=== PATIENT | female | born 1955 | race Caucasian/White ===

== ENCOUNTER 2017-03-09 09:43 | Inpatient (IN) ==
[2017-03-09] MEDS ORDERED: ASPIRIN PO STA (10:36)
[2017-03-09 10:52] LABS: MANUAL DIFF NEEDED? NO
[2017-03-09 10:52] LABS: ALLEN TEST YES; BE 4.9 mmoll (-3.0-3.0); BLOOD TYPE ARTERIAL; DRAW SITE R RADIAL; METHB 0.7 % (0.0-1.5); MODALITY CANNULA; O2(CT) 17.3 mL/dL (15.0-23.0); PCO2(98.6) 41 mmHg (35-45); PO2(98.6) 80 mmHg (60-100); SAMPLE BLOOD; SAO2 96.7 % (95.0-100.0); THB 12.9 g/dL (11.5-17.4); pH(98.6) 7.46 (7.35-7.45)
[2017-03-09 11:00] LABS: BASO% 0.2 % (0.0-0.8); EOS# 0.14 X1000 (0.0-0.7); EOS% 2.7 % (0.0-10.0); HEMATOCRIT 38.9 % (37.0-47.0); HEMOGLOBIN 12.9 g/dL (12.0-16.0); IMM GRAN# 0.02 X1000 (0.0-0.04); IMM GRAN% 0.4 % (0.0-0.5); LYMPH# 1.65 X1000 (1.2-3.4); LYMPH% 32.2 % (20.5-51.1); MCH 33.3 PG (27-31); MCHC 33.2 g/dL (33-37); MCV 100.5 FL (81-99); MONO# 0.65 X1000 (0.11-0.59); MONO% 12.7 % (1.7-9.3); MPV 12.3 FL (7.4-10.4); NEUT% 51.8 % (42.2-75.2); PLT 204 X1000 (130-400); RBC 3.87 XMIL (4.2-5.4)
[2017-03-09 11:13] LABS: INR 0.99; PROTIME 10.4 Seconds (9.2-11.7); PTT 24.5 Seconds (22.0-36.0)
[2017-03-09] MEDS ORDERED: MORPHINE IV ONE (11:19)
[2017-03-09] MEDS ORDERED: ZOFRAN IV ONE (11:20)
[2017-03-09 11:21] LABS: AGAP 13; ALBUMIN 4.2 g/dL (3.5-5.0); ALKALINE PHOSPHATASE 71 U/L (32-104); BUN 12 mg/dL (8-22); CALCIUM 9.6 mg/dL (8.8-10.2); CHLORIDE 101 mmol/L (98-107); CK PROFILE 77 U/L (24-173); COSMO 282; GOT 23 U/L (10-30); GPT 27 U/L (10-36); MAGNESIUM 1.9 mg/dL (1.5-2.7); POTASSIUM 3.8 mmol/L (3.5-5.1); SODIUM 142 mmol/L (136-145); TCO2 28 mmol/L (25-35); TOTAL BILIRUBIN 0.59 mg/dL (0.20-1.00); TOTAL PROTEIN 7.8 g/dL (6.3-8.3)
[2017-03-09] MEDS ORDERED: DUONEB (A & A) INH ONE (11:28)
--- NOTE | 2017-03-09 11:53 | PROVIDER DOCUMENTATION ---
HPI-Chest Pain - General Chief Complaint: Shortness of Breath Stated Complaint: LOW O2 SAT, 72 RA, 98 ON 3L Time Seen by Provider: 03/09/17 10:33 Source: patient Allergies/Adverse Reactions: Patient Allergies Allergy/AdvReac Type Severity Reaction Status Date / Time aspartame Allergy Intermediate SWELLING Verified 03/09/17 10:25 Home Medications: Home Medication List Medication Instructions Recorded Confirmed Last Taken Type Hydroxychloroquine [Plaquenil] 200 mg PO BID 03/22/12 03/09/17 03/09/17 05:00 History Albuterol Sulfate [Ventolin Hfa] 18 gm IH BID 11/17/16 03/09/17 10/25/16 History Azathioprine [Imuran] 2 tab PO BID 11/17/16 03/09/17 03/09/17 05:00 History Dicyclomine [Bentyl] 10 mg PO DIRECTED 11/17/16 03/09/17 03/09/17 05:00 History Losartan/Hydrochlorothiazide 1 each PO DAILY 11/17/16 03/09/17 03/09/17 05:00 History [Losartan-Hctz 50-12.5 mg Tab] Omeprazole 40 mg PO DAILY #30 capsule. 11/24/16 03/09/17 03/09/17 05:00 Rx - History of Present Illness-CP Nature of Presenting Problem: Pt is a 61 y/o F c chief complaint of R sided CP and SOB x 3 days. Pt states she was seen by her PCP, Dr. Almeida, today and had an out-pt chest x-ray in [place]. Her PCP had her transported to the ER via EMS and, per pt, told her she needs to be admitted for her shortness of breath. Pt has a long h/o fibrotic lung dz, CHF, morbid obesity. Pt states that for the past week it has been difficult to walk short distances without becoming severely short of breath. She also reports increased orthopnea. Additionally, pt has a long h/o back pain and states that it is worse today. On arrival, pt is anxious but is in minimal distress. Review of Systems - Adult - REVIEW OF SYSTEMS - ADULT Constitutional: reports: no symptoms reported. denies: chills, fatique Eyes: reports: no symptoms reported. denies: blurred vision, double vision Ears, Nose, Mouth & Throat: reports: no symptoms reported. denies: ear pain, nose pain, throat pain Cardiovascular: reports: see HPI, chest pain. denies: orthopnea Respiratory: reports: see HPI, cough, shortness of breath Gastrointestinal: reports: no symptoms reported. denies: abdominal pain, nausea Genitourinary: reports: no symptoms reported. denies: dysuria, hematuria Musculoskeletal: reports: no symptoms reported. denies: joint pain, joint swelling Integumentary: reports: no symptoms reported. denies: itching, rash Neurological: reports: no symptoms reported. denies: numbness, paresthesia Psychiatric: reports: no symptoms reported. denies: anxiety, emotional problems Endocrine: reports: no symptoms reported. denies: cold intolerance, heat intolerance Hematologic/Lymphatic: reports: no symptoms reported. denies: blood clots, low blood count Allergic/Immunologic: reports: no symptoms reported. denies: allergic reactions , food allergy All Other Systems: Reviewed and Negative Past History - Adult - PAST MEDICAL HISTORY-ADULT Review of Records: reports: Old Records Reviewed, Nursing Assessment Review, Medications Reviewed, Social history reviewed & non-contributory. Major Childhood Illnesses: reports: denies history Cardiovascular: reports: CHF, HTN, other (blocked artery) Respiratory: reports: COPD, other (fibrotic lung dz) Gastrointestinal: reports: denies history Obstetrical/Gynecological: reports: denies history Genitourinary: reports: denies history Musculoskeletal: reports: arthritis Neurological: reports: denies history Endocrine/Immune: reports: thyroid disorder Other Conditions: reports: denies history - PRIOR SURGERIES/PROCEDURES Surgical/Procedure History: reports: cholecystectomy, BTL - IMMUNIZATION STATUS Childhood Immunizations: See Nurse Assessment Flu Vaccine: See Nurse Assessment - FAMILY HISTORY Family History: reviewed, not pertinent Physical Exam-General - PHYSICAL EXAM-ADULT Initial Vital Signs Reviewed: Yes - CONSTITUTIONAL General Appearance: alert, mild distress, obese - EYES Eyes: PERRL/EOMI, pink conjunctivae - HEAD, EARS, NOSE, MOUTH & THROAT HENMT: normocephalic/atraumatic, moist mucous membranes, normal ENT inspection - NECK Neck: normal inspection - RESPIRATORY Respiratory: wheezing (wheezing throughout, decreased lung sounds in bases), increased rate, other (chest wall pain on palpation) - CARDIOVASCULAR Cardiovascular: normal peripheral pulses, regular rate, rhythm - GASTROINTESTINAL (ABDOMEN) Abdominal Exam: normal bowel sounds, non tender, soft - LYMPHATIC Lymphatic: no adenopathy - MUSCULOSKELETAL Back Exam: normal inspection, no CVA tenderness, no vertebral tenderness Extremity: normal range of motion, non-tender, normal inspection - SKIN Integumentary: normal color, normal turgor, warm/dry - NEUROLOGIC Neurologic: grossly normal, no motor/sensory deficits - PSYCHIATRIC Psych/Mental Status: anxious Progress - PLAN OF CARE/RESULTS Progress/Plan/Lab Results: Vital Signs - 8 hr 03/09/17 10:08 03/09/17 11:43 Temperature 98.2 F Pulse Rate 72 68 Respiratory Rate 24 16 Blood Pressure 167/84 O2 Sat by Pulse Oximetry 97 96 Laboratory Results - last 24 hr 03/09/17 03/09/17 03/09/17 10:00 10:15 10:15 WBC 5.13 RBC 3.87 L Hgb 12.9 Hct 38.9 MCV 100.5 H MCH 33.3 H MCHC 33.2 RDW Std Deviation 13.9 Plt Count 204 MPV 12.3 H Immature Gran % (Auto) 0.4 Neut % (Auto) 51.8 Lymph % (Auto) 32.2 [place] % (Auto) 12.7 H Eos % (Auto) 2.7 Baso % (Auto) 0.2 Immature Gran # (Auto) 0.02 Neut # (Auto) 2.66 Lymph # (Auto) 1.65 [place] # (Auto) 0.65 H Eos # (Auto) 0.14 Baso # (Auto) 0.01 PT INR PTT (Actin FS) D-Dimer 1.42 H Specimen Type Sample Site pH pCO2 pO2 HCO3 Base Excess Oxyhemoglobin ABG O2 Sat (Calculated) ABG O2 Saturation ABG Carboxyhemoglobin ABG Methemoglobin Leandro Test A-a O2 Difference Total Hemoglobin Lactate Liter Flow Blood Gas Modality FiO2 % Sodium 142 Potassium 3.8 Chloride 101 Carbon Dioxide 28 Anion Gap 13 BUN 12 Creatinine 0.7 Estimated GFR/1.73 m2 > 60 BUN/Creatinine Ratio 17 Glucose 81 Calculated Osmolality 282 Calcium 9.6 Magnesium 1.9 Total Bilirubin 0.59 AST 23 ALT 27 Alkaline Phosphatase 71 Creatine Kinase 77 Troponin T Rvg-R-Rqwrmdekiln Pept Total Protein 7.8 Albumin 4.2 Globulin 3.6 Albumin/Globulin Ratio 1.2 03/09/17 03/09/17 03/09/17 10:15 10:15 10:15 WBC RBC Hgb Hct MCV MCH MCHC RDW Std Deviation Plt Count MPV Immature Gran % (Auto) Neut % (Auto) Lymph % (Auto) [place] % (Auto) Eos % (Auto) Baso % (Auto) Immature Gran # (Auto) Neut # (Auto) Lymph # (Auto) [place] # (Auto) Eos # (Auto) Baso # (Auto) PT 10.4 INR 0.99 PTT (Actin FS) 24.5 D-Dimer Specimen Type Sample Site pH pCO2 pO2 HCO3 Base Excess Oxyhemoglobin ABG O2 Sat (Calculated) ABG O2 Saturation ABG Carboxyhemoglobin ABG Methemoglobin Leandro Test A-a O2 Difference Total Hemoglobin Lactate Liter Flow Blood Gas Modality FiO2 % Sodium Potassium Chloride Carbon Dioxide Anion Gap BUN Creatinine Estimated GFR/1.73 m2 BUN/Creatinine Ratio Glucose Calculated Osmolality Calcium Magnesium Total Bilirubin AST ALT Alkaline Phosphatase Creatine Kinase Troponin T < 0.010 Ecf-X-Jjlovjytzbk Pept 124 Total Protein Albumin Globulin Albumin/Globulin Ratio 03/09/17 10:42 WBC RBC Hgb Hct MCV MCH MCHC RDW Std Deviation Plt Count MPV Immature Gran % (Auto) Neut % (Auto) Lymph % (Auto) [place] % (Auto) Eos % (Auto) Baso % (Auto) Immature Gran # (Auto) Neut # (Auto) Lymph # (Auto) [place] # (Auto) Eos # (Auto) Baso # (Auto) PT INR PTT (Actin FS) D-Dimer Specimen Type ARTERIAL Sample Site R RADIAL pH 7.46 H pCO2 41 pO2 80 HCO3 28.7 H Base Excess 4.9 H Oxyhemoglobin 95.0 ABG O2 Sat (Calculated) 17.3 ABG O2 Saturation 96.7 ABG Carboxyhemoglobin 1.20 ABG Methemoglobin 0.7 Leandro Test YES A-a O2 Difference 97.0 Total Hemoglobin 12.9 Lactate 1.20 Liter Flow 3.0 Blood Gas Modality CANNULA FiO2 % 32.0 Sodium Potassium Chloride Carbon Dioxide Anion Gap BUN Creatinine Estimated GFR/1.73 m2 BUN/Creatinine Ratio Glucose Calculated Osmolality Calcium Magnesium Total Bilirubin AST ALT Alkaline Phosphatase Creatine Kinase Troponin T Wpr-H-Evppkyljxzy Pept Total Protein Albumin Globulin Albumin/Globulin Ratio Orders Category Date Time Status Cardiac Monitoring DIRECTED Care 03/09/17 10:36 Active Oxygen Therapy- ED Nursing DIRECTED Care 03/09/17 10:36 Active Saline Loc NOW Care 03/09/17 10:[address] ANGIOGRM/PULMONARY ARTERIES [CT] Stat Exams 03/09/17 11:43 Completed ABG [RESP] Routine Lab 03/09/17 10:42 Completed CBC WITH ELECTRONIC DIFF [HEME] Stat Lab 03/09/17 10:00 Completed CK PROFILE [SP CHEM] Stat Lab 03/09/17 10:15 Completed COMPREHENSIVE METABOLIC PANEL [CHEM] Stat Lab 03/09/17 10:15 Completed D-DIMER [CHEM] Stat Lab 03/09/17 10:15 Completed MAGNESIUM [CHEM] Stat Lab 03/09/17 10:15 Completed PRO B-NATRIURETIC PEPTIDE Stat Lab 03/09/17 10:15 Completed PROTIME WITH INR [COAG] Stat Lab 03/09/17 10:15 Completed PTT [COAG] Stat Lab 03/09/17 10:15 Completed TROPONIN T Stat Lab 03/09/17 10:15 Completed Albuterol 2.5MG/Ipratrop 0.5MG [Duoneb (A & A)] Med 03/09/17 11:28 Discontinued 6 ml INH NOW ONE Aspirin Med 03/09/17 10:36 Discontinued 325 mg PO STAT STA Dexamethasone [Decadron] Med 03/09/17 14:16 Discontinued 10 mg IV NOW ONE Morphine Med 03/09/17 11:19 Discontinued 4 mg IV NOW ONE Ondansetron [Zofran] Med 03/09/17 11:20 Discontinued 4 mg IV NOW ONE Aerosol Treatments Routine Oth 03/09/17 11:28 Completed Aerosol Treatments Stat Oth 03/09/17 11:28 Completed EKG [EKG] Routine Ther 03/09/17 12:00 Draft EKG [EKG] Stat Ther 03/09/17 10:36 Draft Result Diagrams: 03/09/17 10:00 03/09/17 10:15 - REASSESSMENT Reassessment #1 Time Reassessed: 14:24 (Pt states she feels improved but is still having tightness in her chest with respirations. I have ordered a repeat set of cardiac enzymes. Dr. Jaffe agrees c admission to hospital for COPD exacerbation. ) - CT/MRI 1 CT Study: Angiogram Impression: Normal (COMMENT: The study is suboptimal due to beam hardening artifact and motion. There are no definite filling defects in the pulmonary arteries. The aorta is not distended and there is no evidence of dissection. No abnormal fluid collections are present. There is no evidence of acute pulmonary parenchymal disease. There is no evidence of significant adenopathy. The regional skeleton is stable in appearance. IMPRESSION: No evidence of pulmonary emboli.) - CONSULTS/PCP/HOSPITALIST Notification #1 *Consult/PCP/Hospitalist*: Jailyn IBRAHIM / Dr. Santiago (Hospitalist) Time Discussed: 14:36 Reason/Comments: Will see pt in the ER and admit. Departure - Departure Date of Disposition Decision: 03/09/17 Time of Disposition Decision: 14:20 DIAGNOSIS: COPD exacerbation Disposition: ADMITTED INPATIENT 09 Certified Medical Emergency: Emergent Condition: Stable Referrals and Follow-Ups: Esteban Almeida [Primary Care Provider] - - Critical Care Note This patient required my direct & personal management of CC.: No Attestation - Physician/ MIKE Attestation Patient care was provided by Advanced Practice Provider:: Yes Advanced Practice Provider:: Otoniel Uriostegui Advanced Practice Provider documentation review:: The Mid-level provider documentation, treatment plan and medical decision making was reviewed by the physician who agrees with all treatment and medical decision making by the MLP. The physician spent face to face time with patient:: No Advanced Practice Provider documentation review:: Supervising physician onsite and consulted in the evaluation and care of this patient. The physician did not have a face to face encounter with the patient.
--- NOTE | 2017-03-09 12:04 | ED EKG INTERP ---
This chart was entered by Sabra Hill Scribe, acting as scribe for Jessica Jaffe MD. EKG Interpretation - EKG Time of EKG reading by physician:: 10:03 EKG Read and Signed by:: Jessica Jaffe EKG Interpretation (*Must complete 3 of following elements*): Abnormal ( BORDERLINE EKG) Rate: 76 Rhythm: NSR Comments: Low voltage QRS Attestation - Physician/ MIKE Attestation Patient care was provided by Advanced Practice Provider:: No The physician spent face to face time with patient:: Yes Advanced Practice Provider documentation review:: Supervising physician onsite and consulted in the evaluation and care of this patient. The physician did have a face to face encounter with the patient. This chart was documented by the indicated scribe, (Sabra Hill Scribe) and accurately reflects the services I performed and decisions made by me, Jessica Jaffe MD, as attested by the provider's signature.
--- NOTE | 2017-03-09 12:50 | EKG Report ---
Test Performed on : 03/09/2017 10:03:28 AM Test Reason : Chest Pain Blood Pressure : / mmHG Vent. Rate : 076 BPM Atrial Rate : 076 BPM P-R Int : 178 ms QRS Dur : 088 ms QT Int : 400 ms P-R-T Axes : 057 -06 039 degrees QTc Int : 450 ms Normal sinus rhythm. Low voltage QRS Borderline ECG When compared with ECG of 23-MAR-2012 05:49, No significant change was found Unconfirmed Result
--- NOTE | 2017-03-09 12:50 | EKG Report ---
Test Performed on : 03/09/2017 12:12:04 PM Test Reason : Chest Pain Blood Pressure : / mmHG Vent. Rate : 079 BPM Atrial Rate : 079 BPM P-R Int : 160 ms QRS Dur : 094 ms QT Int : 400 ms P-R-T Axes : 012 -07 034 degrees QTc Int : 458 ms Normal sinus rhythm. Low voltage QRS Borderline ECG When compared with ECG of 09-MAR-2017 10:03, (Unconfirmed) No significant change was found Unconfirmed Result
--- NOTE | 2017-03-09 13:53 | ED EKG INTERP ---
This chart was entered by Sabar Hill Scribe, acting as scribe for Jessica Jaffe MD. EKG Interpretation - EKG Time of EKG reading by physician:: 12:12 EKG Read and Signed by:: Jessica Jaffe EKG Interpretation (*Must complete 3 of following elements*): Abnormal ( BORDERLINE EKG) Rate: 79 Rhythm: NSR [place]: normal QRS: other (low voltage QRS) Attestation - Physician/ MIKE Attestation Patient care was provided by Advanced Practice Provider:: No The physician spent face to face time with patient:: Yes Advanced Practice Provider documentation review:: Supervising physician onsite and consulted in the evaluation and care of this patient. The physician did have a face to face encounter with the patient. This chart was documented by the indicated scribe, (Sabra Hill Scribe) and accurately reflects the services I performed and decisions made by me, Jessica Jaffe MD, as attested by the provider's signature.
--- NOTE | 2017-03-09 13:55 | Diag Imaging Result Doc PS360 ---
EXAM: CT ANGIOGRM/PULMONARY ARTERIES HISTORY: R SIDED CP, FIBROTIC LUNG DZ, ELEV DDIMER TECHNIQUE: CT pulmonary angiogram with 3-D MIPS and reduced dose (clarity.) COMMENT: The study is suboptimal due to beam hardening artifact and motion. There are no definite filling defects in the pulmonary arteries. The aorta is not distended and there is no evidence of dissection. No abnormal fluid collections are present. There is no evidence of acute pulmonary parenchymal disease. There is no evidence of significant adenopathy. The regional skeleton is stable in appearance. IMPRESSION: No evidence of pulmonary emboli. Electronically signed by Giuseppe Sanchez 03/09/2017 1:53 PM
[2017-03-09] MEDS ORDERED: DECADRON IV ONE (14:16)
[2017-03-09 15:29] LABS: URINE CULTURE NEEDED? NO; URINE MICRO REVIEW NEEDED? NO; URINE SOURCE CLEAN CATCH
[2017-03-09 15:39] LABS: BILIRUBIN URINE NEGATIVE (NEGATIVE); BLOOD URINE NEGATIVE (NEGATIVE); COLOR YELLOW; GLUCOSE URINE NEGATIVE (NEGATIVE); LEUKOCYTES URINE NEGATIVE (NEGATIVE); NITRITE URINE NEGATIVE (NEGATIVE); PH URINE 5.5; PROTEIN URINE NEGATIVE (NEGATIVE); SP GRAVITY URINE 1.008; TURBIDITY URINE CLEAR (CLEAR); UROBILINOGEN URINE NORMAL (NORMAL)
[2017-03-09 15:41] LABS: UR EPITHELIAL CELLS <10 /HPF (<10); URINE BACTERIA NEGATIVE /HPF; URINE RBC <10 /HPF (<10); URINE WBC <10 /HPF (<10)
[2017-03-09] MEDS: SOLU-MEDROL IV SCH (18:06)
[2017-03-09] MEDS: ROCEPHIN 1 GM in NS 50 ML IV SCH (18:08)
[2017-03-09] MEDS ORDERED: ZOFRAN IV PRN (18:22)
[2017-03-09] MEDS ORDERED: NITROGLYCERIN SL PRN (18:22)
--- NOTE | 2017-03-09 19:23 | HISTORY AND PHYSICAL ---
PRIMARY CARE PROVIDER: Esteban Almeida MD. WORKERS COMPENSATION CLAIMS ANALYST: Rashid Cruz MD, who she saw 3 weeks ago. CHIEF COMPLAINT: Chest pain and shortness of breath. HISTORY OF PRESENT ILLNESS: Ms. Es Velásquez is a 61-year-old, , morbidly obese female, with a medical history of COPD, hypertension, dyslipidemia, who apparently for the last 5 days has been feeling unwell, since Sunday. But for the last 3 days, she started developing shortness of breath with chest pain that would radiate to the right shoulder that had associated nausea and dizziness. Denied any diaphoresis, but she just felt like her chest was so tight it was hard to breathe. She has had other symptoms such as chills and diarrhea, increasing lower extremity edema. She went to go see Dr. Almeida today, who sent her here to work her up for COPD and chest pain. Upon evaluation, her white count was normal at 5. Her ABGs are also somewhat normal 7.46, pCO2 of 41, pO2 of 80 and this is on 3 L nasal cannula. She normally wears 2 L at home. She states that she feels like this is not from her COPD and is concerned about her heart. She did have an elevated D-dimer at 1.42, which was negative CTA for negative PE. Cardiac enzymes x1 set is negative. EKG is negative. So we will go ahead and work up for COPD exacerbation and chest pain, rule out. She could benefit likely for an outpatient stress test. According to her, she has been getting a workup through Dr. Dias for gastric sleeve, but her cardiac workup has not been completed. She states that her last stress test was several years ago. She does have a family history of cardiac disease, primarily in her brothers and her father through ages 40-60. She has been a smoker for 40 years although she quit 1-1/2 years ago. She is morbidly obese and she has high cholesterol. PAST MEDICAL HISTORY: Congestive heart failure. Seasonal allergies, hypertension, dyslipidemia, COPD. Uses 2 L nasal cannula at home. Morbid obesity with a BMI 55.6. Obstructive sleep apnea where she wears CPAP at night and hypertension. SURGICAL HISTORY: Tubal ligation. Cholecystectomy, left foot surgery, right wrist surgery. SOCIAL HISTORY: Quit smoking 1-1/2 years ago, but prior to that smoked 2 packs per day for 40 years. Denies alcohol or illicit drug use. She lives at home alone. FAMILY HISTORY: There is breast cancer, stroke, myocardial infarctions, diabetes mellitus that runs in the family. There is early cardiac disease in her father and her 2 brothers who have had myocardial infarctions at the age of 47, 57 and another brother that was age 37. REVIEW OF SYSTEMS: Fourteen point review of systems were complete and all were negative except for those mentioned above in HPI. She does have nausea, dizziness from time to time, shortness of breath. Chills, diarrhea, increasing lower extremity edema. Right leg pain, back pain and chest pain. ALLERGIES: Artificial sweeteners such as aspartame. HOME MEDICATIONS: Albuterol, Imuran 50 mg 2 tabs p.o. twice daily. Bentyl 10 mg as needed. Plaquenil 200 mg p.o. twice daily. Losartan/hydrochlorothiazide 50/12.5 mg 1 tab p.o. daily. Omeprazole 40 mg p.o. daily. PHYSICAL EXAMINATION: VITAL SIGNS: Temperature 98.2, heart rate 71, respiratory rate 17, blood pressure 128/58, O2 saturation 97% on 4 L nasal cannula. 5 feet 2 inches tall, 304 pounds. BMI 55.6. GENERAL: Ms. Es Velásquez is a 61-year-old, morbidly obese female. She is in no acute distress, but is occasionally short of breath with long conversation, but she is able to answer questions appropriately. HEENT: Atraumatic, normocephalic. Pupils equal, round, reactive to light. Extraocular movements intact. Mucous membranes moist. NECK: Trachea midline. CARDIOVASCULAR: S1, S2. Regular rate and rhythm. No rubs, gallops, or murmurs. Negative for carotid bruits, but unable to assess JVD secondary to body habitus. She had +2 dorsalis and radial pulses. Significant amount of lower extremity edema, about +2 to +3. EXTREMITIES: Moves all extremities equally. 5/5 strength. PULMONARY: Clear to auscultate with bilateral breath sounds. Decreased in the bases. No accessory muscle use or work of breathing noted. Just gets short of breath when she has a long conversation. Currently on 4 L nasal cannula. GI: Morbidly obese, round, soft, nontender. Positive bowel sounds x4. NEURO: A and O x4. SKIN: Warm, dry, intact. LABORATORY DATA: White blood cells 5000, hemoglobin 12, hematocrit 38, platelet count 204. INR 0.99, PTT 24.5. D-dimer is 1.42. ABGs 7.46, pCO2 of 41, pO2 is 80, bicarb 28 , base excess 4.9, saturation 95%. Lactate 1.2. Sodium 142, potassium 3.8, BUN 12, creatinine 0.7 , glucose 81, calcium 9.6, magnesium 1.9. Bilirubin 0.59, AST 23, ALT 27. CK 77. Troponin less than 0.01. ProBNP 124. Urinalysis negative. IMAGING: Pulmonary arteriogram. No evidence of pulmonary emboli. EKG normal sinus rhythm, rate 79. QTc 458. No ST elevation, depression or inversions. ASSESSMENT AND PLAN: 1. Atypical chest pain. Has been intermittent over the last 3 days. Was more severe this morning while getting ready to go to the physician's office. [place] as though it was very tight, had difficulty breathing with it. Radiated to her right shoulder. She had nausea and dizziness with it. Cardiac enzymes are negative. EKG negative. She has a significant family history of coronary artery disease with myocardial infarction starting in the 30s and 40s in her father and brothers. She has hyperlipidemia. She is morbidly obese. She was a smoker up until 1-1/2 years ago. Her last hemoglobin A1c was normal at 5.4 in November of this year. Will do serial cardiac enzymes. Repeat an EKG in the morning. She would be a good candidate for resting stress test. Maybe get scheduled for one on Sunday. 2. Chronic obstructive pulmonary disease, possibly with exacerbation, although her ABGs are normal. No signs of CO2 retention. She does have just shortness of breath, but she feels like this is not lung related. She states that she went to Dr. Cruz about 3 weeks ago and it is noted that she said they changed her medications around, but she feels like those have not helped. 3. Hypertension. We will continue home medications. 4. Dyslipidemia. Will continue home medications. 5. Morbid obesity. BMI is 55.6. Diet and exercise recommended, but she states she wants to have gastric sleeve performed and she is also seeing Dr. Dias for that in [place]. 6. Obstructive sleep apnea. Uses CPAP at night. 7. Deep venous thrombosis prophylaxis. Lovenox. 8. She has elevated D-dimer. She was negative for pulmonary emboli, but she has significant lower extremity edema. We will do a lower extremity ultrasound to rule out deep vein thrombosis. Dictated by PATRICE Olguin for Troy Dumont MD Addendum: Patient seen and examined. Agree with PATRICE note. It reflects my assessment and plan. Patient being admitted for acute respiratory failure secondary to COPD exacerbation. Will provide breathing treatments, IV steroids, IV antibiotics and oxygen supplementation. Because patient report also chest discomfort that can be both related to COPD but also to a heart condition, and considering his heavy family history of ischemic heart disease will consult Cardiology. Will order an echo as well and will continue with home meds for other medical conditions. cc: PATRICE Olguin MD [facility]
[2017-03-09] MEDS: XOPENEX NEB INH SCH (21:05)
[2017-03-09] MEDS: ATROVENT NEB INH SCH (21:05)
[2017-03-10] MEDS: TYLENOL PO PRN ×2 (00:21→09:49)
[2017-03-10] MEDS: PRILOSEC PO SCH ×3 (00:21→22:15)
[2017-03-10] MEDS: MORPHINE IV PRN ×2 (00:22→08:19)
[2017-03-10] MEDS: SOLU-MEDROL IV SCH ×3 (00:23→16:30)
[2017-03-10] MEDS: XOPENEX NEB INH SCH ×2 (03:48→12:29)
[2017-03-10] MEDS: ATROVENT NEB INH SCH ×2 (03:48→12:29)
[2017-03-10 07:35] LABS: HEMATOCRIT 39.2 % (37.0-47.0); IMM GRAN# 0.02 X1000 (0.0-0.04); IMM GRAN% 0.4 % (0.0-0.5); LYMPH# 0.44 X1000 (1.2-3.4); LYMPH% 8.3 % (20.5-51.1); MCH 33.1 PG (27-31); MCHC 33.2 g/dL (33-37); MCV 99.7 FL (81-99); MONO% 1.9 % (1.7-9.3); MPV 12.1 FL (7.4-10.4); NEUT% 89.4 % (42.2-75.2); PLT 216 X1000 (130-400); RBC 3.93 XMIL (4.2-5.4)
[2017-03-10 07:36] LABS: HEMOGLOBIN A1C 5.3 % (4.8-6.0); MANUAL DIFF NEEDED? NO
[2017-03-10 08:04] LABS: FREE T4 1.25 ng/dL (0.93-1.70)
[2017-03-10 08:05] LABS: AGAP 16; ALBUMIN 4.2 g/dL (3.5-5.0); ALKALINE PHOSPHATASE 69 U/L (32-104); BUN 14 mg/dL (8-22); CALCIUM 9.6 mg/dL (8.8-10.2); CHLORIDE 98 mmol/L (98-107); COSMO 283; GOT 20 U/L (10-30); GPT 26 U/L (10-36); POTASSIUM 3.9 mmol/L (3.5-5.1); SODIUM 140 mmol/L (136-145); TCO2 26 mmol/L (25-35); TOTAL BILIRUBIN 0.42 mg/dL (0.20-1.00); TOTAL PROTEIN 8.1 g/dL (6.3-8.3)
[2017-03-10] MEDS: ASPIRIN PO SCH (08:07)
[2017-03-10 08:08] LABS: INR 1.01; PROTIME 10.6 Seconds (9.2-11.7); PTT 24.4 Seconds (22.0-36.0)
[2017-03-10] MEDS: LOVENOX SUBQ SCH (08:08)
[2017-03-10] MEDS ORDERED: DUONEB (A & A) INH PRN (13:37)
--- NOTE | 2017-03-10 15:14 | Diag Imaging Result Doc PS360 ---
EXAM: CT HEAD W/O CONTRAST HISTORY: severe headache TECHNIQUE: CT of the head without contrast with dose reduction (clarity.) COMMENT: There is no evidence of mass effect bleed or abnormal extra-axial fluid collection. There is patchy lucency in the white matter both hemispheres particularly in the posterior parietal lobe on the right. There are no previous studies available for comparison. There is also some lucency present in the anterior internal capsule and adjacent basal ganglia on the left. The visualized paranasal sinuses are clear. The calvarium is intact. IMPRESSION: Chronic microvascular white matter changes. Further evaluation with MRI may be desirable in view of the chronic ischemic changes. Electronically signed by Giuseppe Sanchez 03/10/2017 3:12 PM
[2017-03-10] MEDS: SPIRIVA INH SCH (16:04)
[2017-03-10] MEDS: DUONEB (A & A) INH SCH ×3 (16:04→23:10)
[2017-03-10] MEDS: ROCEPHIN 1 GM in NS 50 ML IV SCH (16:30)
--- NOTE | 2017-03-10 16:47 | PROGRESS NOTE ---
DATE: 03/10/2017 SUBJECTIVE: Patient reports still having some chest tightening also she reports severe headache. OBJECTIVE: Vital Signs: Temperature 98.1 degrees, heart rate 83, respiratory rate 16, blood pressure 155/74, O2 saturation 96% on 4 L nasal cannula. General Examination: This is a 61-year- old morbidly obese female lying in bed in no acute distress. HEENT: Head is normocephalic, atraumatic. Anicteric sclerae and pale conjunctivae. Mucous membranes moist. Neck: Supple. No JVD noted because of neck girth, no lymphadenopathy. Cardiovascular: S1, S2 heard. No murmurs, gallops, or rubs. Regular rate and rhythm. Respiratory: Clear bilaterally to auscultation. The patient is not using any accessory muscles or having work of breathing. Abdomen: Soft, obese, nontender to palpation. Bowel sounds present. No organomegaly. Extremities: No clubbing or cyanosis and significant amount of edema 3+ in both lower extremities. Neurological: Patient alert, oriented x3. Moves 4 extremities. LABORATORY DATA: The CBC is unremarkable as well as the BMP with normal proBNP and we have checked cardiac enzymes twice in this case troponins and both are so far negative. ASSESSMENT AND PLAN: 1. Chest tightness. Patient was admitted to hospital for shortness of breath and chest tightness. According to her she reports more than shortness of breath is chest discomfort 4. In any case because we suspected pulmonary embolism CT angio of the chest was ordered which basically was negative for pulmonary embolism and for any pneumonia. Also we have checked troponins and those were negative. In any case we prefer to consult cardiology because of the heavy family history of cardiac disease and the fact that she continues to complains of chest discomfort that in her own words it is different when she has a COPD exacerbation 2. Chronic obstructive pulmonary disease. We are going to treat it like an exacerbation using DuoNeb every 4 hours. There is no signs of CO2 retention. We already ruled out pulmonary embolism so at this point we are going to continue with the same management. 3. Hypertension. Will continue with home medications. 4. Dyslipidemia. Will continue with home medications. 5. Morbid obesity. Patient has been seen by bariatric surgeon. 6. Obstructive sleep apnea. Patient is using CPAP at night. 7. Deep vein thrombosis prophylaxis with Lovenox. 8. Gastrointestinal prophylaxis with Protonix. cc: Troy Dumont MD [facility]
--- NOTE | 2017-03-10 18:47 | CONSULTATION ---
DATE OF CONSULTATION: 03/10/2017 INDICATION: Shortness of breath. Chest tightness. HISTORY OF PRESENT ILLNESS: Ms Velásquez is a 61-year-old white female who is morbidly obese. She presented for evaluation of chest tightness and shortness of breath through her primary care physician. This has been ongoing for more than a week. For the last several days she reports that it has been continuous in nature. She has a history of significant lung disease including COPD/asthma. She reports she just has a very difficult time catching her breath. She is not having any exertional component to her symptoms. She reports no recent coughs, no recent fevers. PAST MEDICAL HISTORY: Significant for. 1. Reported history of congestive heart failure. I have no reports of previous echocardiograms. 2. COPD. 3. Hypertension. 4. Hyperlipidemia. 5. Morbid obesity. SOCIAL HISTORY: She quit smoking around 1-1/2 years ago. Previous to that she smoked 2 packs a day. No alcohol or illicit drugs. FAMILY HISTORY: Significant for breast cancer, stroke, diabetes, myocardial infarctions. REVIEW OF SYSTEMS: A 10 system review of systems is negative except for those things mentioned in HPI. PHYSICAL EXAMINATION: Vital signs: She is afebrile. Heart rates have been somewhat elevated from time to time, range is anywhere from 60s to 110s. Blood pressure 115/57 General: She is in no acute distress. HEENT: Oropharynx is moist. She has normal dentition. Her eye examination shows pink conjunctivae. White sclerae. Neck: Examination shows no obvious thyromegaly or thyroid tenderness. Cardiovascular: She sounds to be in a regular rate and rhythm. She has no murmurs. She has very distant heart sounds secondary to morbid obesity. Chest: Has a prolonged expiratory phase, expiratory wheezes were heard. She has somewhat mild straining with breathing. Abdomen: Soft, nontender, nondistended. She has no obvious organomegaly. Skin: Warm and dry throughout without any rashes. Neurologic: Moving all extremities well. Cranial nerves 2-12 are intact without any sensation deficits. Psychiatric: Alert and oriented, pleasant. Normal mood and affect. PERTINENT DATA: CTA of the chest does not demonstrate any evidence of pulmonary emboli. Her EKG shows sinus rhythm. She had no signs of ischemic changes on the 3 EKGs she had 1 yesterday at 12:12, 1 yesterday at 10:03 a.m. and another this morning at 5:22. She had an echocardiogram which is currently pending. Her laboratory data shows a white count of 5.3, hematocrit 39, platelet count 216,000. She has an INR which is normal. Sodium is normal, potassium 3.9, BUN 14, creatinine 0.7. She has negative cardiac enzymes. She has a normal proBNP yesterday of 124. ASSESSMENT: Patient with nonexertional chest tightness and shortness of breath and wheezing with a normal proBNP yesterday. PLAN: I believe this is most likely pulmonary in etiology. I would be hesitant to pursue any sort of an ischemia evaluation at this time point. She is currently being treated with Solu- Medrol as well as nebulizers. I would continue with that treatment for now. She is on an aspirin. I would continue that regimen for the time being. cc: Chris Gonzalez MD
--- NOTE | 2017-03-10 19:15 | ECHO REPORT ---
ORDER DATE: 03/10/2017 INDICATION: Shortness of breath. Chest discomfort. FINDINGS: This is an extremely poor quality study. The patient is 5 foot 2 and weighs 300 pounds. Limited windows were available with very poor quality resolution. 1. Right heart structures are extremely poorly visualized. Definity echo contrast was used and the right ventricle was able to be seen. It seemed to have normal RV systolic function. 2. No evidence of pulmonic insufficiency. 3. There is a suggestion of tricuspid regurgitation. Unfortunately the tricuspid regurgitation jet was poorly localized, could not measure an accurate RV systolic pressure. 4. Likely normal left atrial size. 5. Poor visualization of the mitral valve but overall there does not appear to be any significant mitral valve prolapse. Mild mitral regurgitation was identified. 6. Normal LV size. The estimated EF is in the range of 60% with no segmental wall motion abnormalities. 7. Aortic valve opens well. No evidence of stenosis or insufficiency. 8. Poor overall views of the aorta but overall appears normal. 9. No pericardial effusion seen. cc: MD Jailyn Atkins CRNP
[2017-03-11] MEDS: DUONEB (A & A) INH SCH ×6 (04:05→23:35)
[2017-03-11] MEDS: SPIRIVA INH SCH (07:58)
[2017-03-11] MEDS: SOLU-MEDROL IV SCH ×3 (09:25→16:01)
[2017-03-11] MEDS: ASPIRIN PO SCH (09:25)
[2017-03-11] MEDS: PRILOSEC PO SCH ×3 (09:25→20:03)
[2017-03-11] MEDS: LOVENOX SUBQ SCH (09:26)
--- NOTE | 2017-03-11 14:31 | PROGRESS NOTE ---
DATE: 03/11/2017 SUBJECTIVE: She continues to be short of breath. PHYSICAL EXAMINATION: Vital Signs: Afebrile. Heart rate is 67, blood pressure 140/62. General: She is in no acute distress. Cardiovascular: Regular rate and rhythm. No murmurs. No S3. Chest: Sounds relatively clear with a prolonged expiratory phase as well as very distant breath sounds. Abdomen: Soft, nontender, nondistended. No obvious organomegaly. PERTINENT DATA: She has no recent laboratory data. She had an echocardiogram performed yesterday. This was an extremely difficult study. Normal EF. Very poor visualization overall. ASSESSMENT: Shortness of breath persistent for the last several days. PLAN: Dr. Cruz is planning to see the patient in the morning. I would like further pulmonary input on this patient prior to proceeding with any cardiac evaluation. She certainly has symptoms that seem pulmonary in etiology. cc: Chris Gonzalez MD
[2017-03-11 15:38] LABS: ALLEN TEST YES; BE 6.1 mmoll (-3.0-3.0); BLOOD TYPE ARTERIAL; DRAW SITE R RADIAL; METHB 0.8 % (0.0-1.5); O2(CT) 16.7 mL/dL (15.0-23.0); PCO2(98.6) 46 mmHg (35-45); PO2(98.6) 69 mmHg (60-100); SAMPLE BLOOD; SAO2 95.3 % (95.0-100.0); THB 12.7 g/dL (11.5-17.4); pH(98.6) 7.44 (7.35-7.45)
[2017-03-11 15:39] LABS: MODALITY CANNULA
--- NOTE | 2017-03-11 15:55 | PROGRESS NOTE ---
DATE: 03/11/2017 SUBJECTIVE: The patient reports still noticing shortness of breath. Even though she is receiving breathing treatments every 4 hours, she said that the relief from shortness of breath has been really mild. Headache is resolved. OBJECTIVE: Vital Signs: Temperature 98.3 degrees, heart rate 67,respiratory rate 20, blood pressure 140/62, O2 saturation 97% on 4 L nasal cannula. General: This is a 61-year-old, morbidly-obese, female lying in bed, in no acute distress. HEENT: Head is normocephalic, atraumatic. Neck: Supple. No JVD noted. No carotid bruits. Cardiovascular: S1, S2 heard. No murmurs, gallops, or rubs. Regular rate and rhythm. Respiratory: Clear bilaterally to auscultation. A few wheezes in both bases, but the patient is not using any accessory muscles or having work of breathing. Abdomen: Soft, obese, nontender to palpation. Bowel sounds present. No organomegaly. Extremities: No clubbing, cyanosis. Also, significant amount of edema, 3+, in both lower extremities. Neurological: The patient is alert and oriented x3. Moves 4 extremities. LABORATORY DATA: There are no labs from today. ASSESSMENT AND PLAN: 1. Acute respiratory failure. The patient requiring 4 L of oxygen right now. Complaining of shortness of breath and requiring, at home. 2 L of oxygen by nasal cannula. At this point, we are going to continue with oxygen supplementation and nebulization breathing treatment with DuoNeb every 4 hours as scheduled and as-needed q.2 hours. 2. Chronic obstructive pulmonary disease exacerbation. The patient, as we mentioned before, is on nebulizations every 4 hours. We had checked ABG yesterday, and there was no CO2 retention. Pulmonary embolism has been ruled out by a CT angiogram of the chest that did not show any pneumonia as well. My plan is to continue with the same management, but if his subjective sensation of shortness of breath continues to happen, we are going to consult his primary animal rescuer, Dr. Cruz, to see what else we can do for this patient. 3. Hypertension. We will continue home medications. Blood pressure is under control. 4. Dyslipidemia. Will continue with home medications. 5. Morbid obesity. The patient has been seen by a bariatric surgeon recently. 6. Obstructive sleep apnea. The patient is supposed to use CPAP at night. 7. Deep vein thrombosis prophylaxis with Lovenox. 8. Gastrointestinal prophylaxis with Protonix. cc: Troy Dumont MD
[2017-03-11] MEDS: ROCEPHIN 1 GM in NS 50 ML IV SCH (15:59)
[2017-03-12] MEDS: DUONEB (A & A) INH SCH ×6 (03:35→23:34)
[2017-03-12 04:19] LABS: ALLEN TEST YES; BE 7.8 mmoll (-3.0-3.0); BLOOD TYPE ARTERIAL; DRAW SITE R RADIAL; METHB 0.9 % (0.0-1.5); O2(CT) 17.3 mL/dL (15.0-23.0); PCO2(98.6) 42 mmHg (35-45); PO2(98.6) 72 mmHg (60-100); SAMPLE BLOOD; SAO2 95.7 % (95.0-100.0); THB 13.1 g/dL (11.5-17.4); pH(98.6) 7.49 (7.35-7.45)
[2017-03-12 04:21] LABS: MODALITY ROOM AIR
--- NOTE | 2017-03-12 06:21 | EKG Report ---
Test Performed on : 03/10/2017 05:22:45 AM Test Reason : chest pain Blood Pressure : / mmHG Vent. Rate : 088 BPM Atrial Rate : 088 BPM P-R Int : 206 ms QRS Dur : 094 ms QT Int : 370 ms P-R-T Axes : 055 -13 036 degrees QTc Int : 447 ms Normal sinus rhythm. Normal ECG When compared with ECG of 09-MAR-2017 12:12, (Unconfirmed) No significant change was found Confirmed by Arturo Brewster MD ([id number]) on 03/14/2017 8:07:22 AM
[2017-03-12 06:47] LABS: MANUAL DIFF NEEDED? NO
[2017-03-12 06:57] LABS: BASO% 0.1 % (0.0-0.8); HEMATOCRIT 39.4 % (37.0-47.0); HEMOGLOBIN 12.7 g/dL (12.0-16.0); IMM GRAN# 0.05 X1000 (0.0-0.04); IMM GRAN% 0.6 % (0.0-0.5); LYMPH# 1.72 X1000 (1.2-3.4); LYMPH% 19.7 % (20.5-51.1); MCH 33.1 PG (27-31); MCHC 32.2 g/dL (33-37); MCV 102.6 FL (81-99); MONO# 0.95 X1000 (0.11-0.59); MONO% 10.9 % (1.7-9.3); MPV 11.8 FL (7.4-10.4); NEUT% 68.7 % (42.2-75.2); PLT 240 X1000 (130-400); RBC 3.84 XMIL (4.2-5.4)
[2017-03-12 07:28] LABS: AGAP 12; BUN 21 mg/dL (8-22); CALCIUM 9.5 mg/dL (8.8-10.2); CHLORIDE 99 mmol/L (98-107); COSMO 284; POTASSIUM 4.1 mmol/L (3.5-5.1); SODIUM 141 mmol/L (136-145); TCO2 30 mmol/L (25-35)
[2017-03-12] MEDS: SPIRIVA INH SCH (07:58)
[2017-03-12] MEDS: LOVENOX SUBQ SCH (09:29)
[2017-03-12] MEDS: SOLU-MEDROL IV SCH ×4 (09:30→16:14)
[2017-03-12] MEDS: PRILOSEC PO SCH ×2 (09:31→20:28)
[2017-03-12] MEDS: ASPIRIN PO SCH (09:31)
--- NOTE | 2017-03-12 12:55 | PROGRESS NOTE ---
DATE: 03/12/2017 SUBJECTIVE: Patient reports still noticing shortness of breath, but better in comparing when she was admitted. No fever, no chills reported. OBJECTIVE: Vital Signs: Temperature 97.9 degrees, heart rate 71, respiratory rate 16, blood pressure 138/69, O2 saturation 99% on 4 L nasal cannula. General: This is a morbidly obese and chronically ill-looking 61-year-old female lying in bed, in no acute distress. HEENT: Head is normocephalic, atraumatic. Neck: Supple. No JVD noted. No carotid bruits. Cardiovascular: S1, S2 heard. No murmurs, gallops, or rubs. Regular rate and rhythm. Respiratory: Clear bilaterally to auscultation. Few wheezing still present in both bases, but patient is not using any accessory muscles or having work of breathing. Abdomen: Soft, nontender to palpation. Bowel sounds present. No organomegaly. Extremities: No clubbing, cyanosis, 3+ pitting edema in both lower extremities with signs of venous insufficiency. Neurological: Patient is alert and oriented x3, moves 4 extremities. LABORATORY DATA: The CBC is okay except mild elevation of MCV. ABG shows pH 7.49 with pCO2 of 42, and BMP is completely unremarkable. ASSESSMENT AND PLAN: 1. Acute respiratory failure still requiring 4 L of oxygen by nasal cannula now, still complaining of shortness of breath. At home, she requires 2 L of oxygen by nasal cannula. At this point, we are going to continue with DuoNeb every 4 hours as scheduled and as needed q.2 hours. The patient is also on Solu-Medrol 40 mg IV 3 times per day. We will continue with the same management. 2. Chronic obstructive pulmonary disease exacerbation. Patient is on treatment as above, and there is no CO2 retention. In any case, we will continue with the treatment mentioned above. We already have ruled out CT, and the CT angio of the chest did not show any pneumonia as well. We have consulted Dr. Cruz, his primary decaler to see what else we can do for this patient. 3. Chest discomfort. Cardiology has evaluated this patient and thinks all symptoms are related to the pulmonary system, but they prefer to wait for Dr. Cruz to see if they decide to proceed for the cardiac workup or not. 4. Hypertension. Blood pressure is under control. We will continue with the same management. 5. Dyslipidemia. Will continue home medications. 6. Morbid obesity. Patient has been seen by a bariatric surgeon recently to have this surgery done in the near future. 7. Obstructive sleep apnea. Patient is supposed to use CPAP at night. 8. Deep vein thrombosis prophylaxis with Lovenox. 9. Gastrointestinal prophylaxis with Protonix. cc: Troy Dumont MD
[2017-03-12] MEDS: ROCEPHIN 1 GM in NS 50 ML IV SCH (16:13)
--- NOTE | 2017-03-12 16:39 | PROGRESS NOTE ---
DATE: 03/12/2017 SUBJECTIVE: Ms. Velásquez continues to complain of shortness of breath. This is fairly persistent. She has not had any episodic coughs. PHYSICAL EXAMINATION: Vital signs: Afebrile. Heart rate in the 70s. Blood pressure is 141/73. Generally: She is in no acute distress. Cardiovascular: She sounds to be in a regular rate and rhythm. She has no murmurs. No lower extremity edema. Chest: Has some very minimal end-expiatory wheezes heard bilaterally. She has very distant breath sounds. Abdomen: Soft, nontender. PERTINENT DATA: White count is 8.7, hematocrit 39.4. Her ABG was reviewed. Sodium is 141, potassium 4.1, BUN 21, creatinine 0.8. ASSESSMENT: Dyspnea, likely multifactorial with components of deconditioning and obesity hypoventilation, as well chronic obstructive pulmonary disease. PLAN: Pending Dr. Cruz's evaluation. Prior to pursuing any further invasive cardiovascular evaluation I would prefer to see his opinion regarding her pulmonary status. cc: Chris Gonzalez MD
[2017-03-12] MEDS: LEVAQUIN PO SCH (19:36)
[2017-03-13] MEDS: DUONEB (A & A) INH SCH ×6 (02:35→22:36)
--- NOTE | 2017-03-13 04:29 | CONSULTATION ---
DATE OF CONSULTATION: 03/12/2017 REQUESTING PHYSICIAN: Dr. Osorio. REASON FOR CONSULTATION: Chest pain and shortness of breath. HISTORY OF PRESENT ILLNESS: Ms. Velásquez is a 61-year-old white female with a greater than 50-pack- year history for tobacco, COPD, morbid obesity, with a BMI greater than 50, rheumatoid arthritis, obstructive sleep apnea, and nocturnal hypoxemic respiratory failure, who developed increasing shortness of breath, along with chest pressure. The patient was seen in the emergency room. The D-dimer is elevated at 1.42, and a CT pulmonary angiogram was performed, which revealed no evidence of pulmonary emboli, and no acute parenchymal infiltrates. She continued to have dyspnea with limited exertion, and remains on oxygen to keep her saturations above 90%. She denies fevers or significant chills. She does have increased shortness of breath and cough. PAST MEDICAL HISTORY/PROBLEM LIST: 1. Morbid obesity, being evaluated for a gastric sleeve procedure. 2. Obstructive sleep apnea, on CPAP. 3. COPD. 4. Rheumatoid arthritis, on Imuran and prednisone. 5. Status post cholecystectomy. 6. Prior cardiac catheterization. 7. Status post tubal ligation. SOCIAL HISTORY: Prior tobacco use. She has been a nonsmoker for several years. No alcohol use. FAMILY HISTORY: Positive for rheumatoid arthritis, diabetes mellitus, coronary artery disease, mesothelioma, CVA, hypertension. PHYSICAL EXAMINATION: General: Reveals a morbidly obese white female. She does not have shortness of breath at rest. Vital Signs: Blood pressure 120/61, heart rate 90, respiration rate 16, oxygen saturation 90% on nasal cannula. HEENT: Pupils are equal and reactive. Oropharynx is clear. Neck: Supple. Chest: Reveals scattered wheezing and rhonchi bilaterally. Cardiac: Regular rate. Normal S1, normal S2. Abdomen: Obese and soft. Extremities: Trace edema. LABORATORY STUDIES: Echocardiogram 03/10/2017 reveals difficult study due to body habitus. Normal RV function. Apparent normal EF, without detected wall-motion abnormality. CT scan as per HPI. IMPRESSION: A 61-year-old with COPD, morbid obesity, with a BMI greater than 50, rheumatoid arthritis, who presents with a COPD exacerbation and acute hypoxemic respiratory failure. She is currently on ceftriaxone, steroids, and nebulizer treatment. I agree with these treatments, but I will also add Levaquin to cover atypical pathogens. RECOMMENDATIONS: 1. Continue steroids, nebulizer, and ceftriaxone as you are doing. 2. Add Levaquin to cover atypical pathogens, along with additional Gram negative coverage. 3. Additional recommendations pending hospital course. cc: Rashid Cruz MD
[2017-03-13 06:49] LABS: MANUAL DIFF NEEDED? NO
[2017-03-13 06:54] LABS: BASO% 0.1 % (0.0-0.8); EOS# 0.05 X1000 (0.0-0.7); EOS% 0.7 % (0.0-10.0); HEMOGLOBIN 12.7 g/dL (12.0-16.0); IMM GRAN# 0.07 X1000 (0.0-0.04); MCH 33.9 PG (27-31); MCHC 33.4 g/dL (33-37); MCV 101.3 FL (81-99); MONO# 0.97 X1000 (0.11-0.59); MONO% 13.3 % (1.7-9.3); MPV 11.6 FL (7.4-10.4); NEUT% 51.9 % (42.2-75.2); PLT 219 X1000 (130-400); RBC 3.75 XMIL (4.2-5.4)
[2017-03-13 07:26] LABS: AGAP 8; BUN 23 mg/dL (8-22); CALCIUM 9.1 mg/dL (8.8-10.2); CHLORIDE 100 mmol/L (98-107); COSMO 287; POTASSIUM 4.4 mmol/L (3.5-5.1); SODIUM 143 mmol/L (136-145); TCO2 35 mmol/L (25-35)
[2017-03-13] MEDS: SPIRIVA INH SCH (08:18)
[2017-03-13] MEDS: PRILOSEC PO SCH ×2 (10:57→20:18)
[2017-03-13] MEDS: ASPIRIN PO SCH (10:58)
[2017-03-13] MEDS: LOVENOX SUBQ SCH (10:58)
[2017-03-13] MEDS: SOLU-MEDROL IV SCH ×5 (10:58→18:06)
[2017-03-13] MEDS: LEVAQUIN PO SCH (11:01)
--- NOTE | 2017-03-13 14:54 | PROGRESS NOTE ---
DATE: 03/13/2017 SUBJECTIVE: This patient is still having shortness of breath but as per the patient she is better compared with admission. She is not able to complete sentences when she talks. Also she states that she has been really weak lately, so I will ask for physical therapy evaluation. She has been walking to the bathroom. OBJECTIVE: Vital Signs: Temperature 98 degrees, pulse 78, respiratory rate 20, blood pressure 140/66, oxygen saturation 99 on 4 L of nasal cannula. HEENT: Head normocephalic. No trauma. PERRLA. Neck: Supple. I cannot see JVD because of her neck size. Central trachea. Chest: Decreased breath sounds globally with prolonged expiratory phase. I can hear mild wheezes mostly at the level of the upper lobes and nothing at the lower lobes, scattered. Abdomen: Soft, obese, nontender, nondistended. Extremities: No edema. No clubbing. No cyanosis. Neurological: The patient is alert and oriented x3. No focal deficits. LABORATORY: WBC 7.2, hemoglobin 12.7, hematocrit 38, platelet 219,000. Sodium 143, potassium 4.4, chloride 100, bicarbonate 35, BUN 23, creatinine 0.9, glucose 77, calcium 9.1. ASSESSMENT AND PLAN: 1. Acute respiratory failure, likely secondary to chronic obstructive pulmonary disease exacerbation. She uses oxygen at home, around 2 L. For now I will continue with DuoNeb, also steroids, breathing treatment, and pulmonary toilet. 2. Chronic obstructive pulmonary disease exacerbation. As above. Pulmonary department is following this patient. 3. Chest discomfort. She has not complaining of chest pain at this moment. Troponins have been negative x3. 4. Dyslipidemia. Continue with home medication. 5. Hypertension, controlled. 6. Morbid obesity. Apparently this patient has been seen by a bariatric surgeon recently. They are planning to do surgery in the near future. 7. Obstructive sleep apnea. This patient uses CPAP at home. 8. Deep vein thrombosis prophylaxis with Lovenox. 9. Macrocytic anemia. I have requested folic acid and B12. cc: Claude Villatoro MD
[2017-03-13] MEDS: ROCEPHIN 1 GM in NS 50 ML IV SCH (16:08)
--- NOTE | 2017-03-13 16:15 | PROGRESS NOTE ---
DATE: 03/13/2017 SUBJECTIVE: Ms. Velásquez continues to have episodic dyspnea with virtually any ambulation. OBJECTIVE: Vital Signs: On physical examination, she is afebrile. Heart rate is 78, blood pressure 140/66. General: She is in no acute distress. Cardiovascular: She sounds to be in a regular rate and rhythm. She has no murmurs, she has no S3, and she has no lower extremity edema. Chest/Heart: Has distant breath sounds. Today she does not sound to have any expiratory wheezes. She has distant heart sounds. No increased work of breathing. Abdomen: Soft, nontender, nondistended. She has no obvious organomegaly. Skin Exam: Warm and dry throughout. PERTINENT DATA: Her telemetry was reviewed. She has no significant arrhythmias identified during the course of her hospital stay. Her laboratory data shows white count 7.2, hematocrit 38, platelet count 219. Sodium is 143, potassium 4.4, BUN 23, creatinine 0.9. ASSESSMENT: Chronic obstructive pulmonary disease exacerbation. PLAN: The patient currently has had a negative cardiac evaluation. It would be reasonable to do cardiovascular screening in this patient considering her history of smoking, but I would prefer to do that as an outpatient considering her ongoing lung issues. We will plan on following her up as an outpatient. cc: Chris Gonzalez MD
[2017-03-14] MEDS: DUONEB (A & A) INH SCH ×3 (03:40→11:35)
[2017-03-14 06:33] LABS: MANUAL DIFF NEEDED? NO
[2017-03-14 06:40] LABS: BASO% 0.2 % (0.0-0.8); EOS# 0.04 X1000 (0.0-0.7); EOS% 0.6 % (0.0-10.0); HEMATOCRIT 40.1 % (37.0-47.0); HEMOGLOBIN 13.1 g/dL (12.0-16.0); IMM GRAN% 1.6 % (0.0-0.5); LYMPH# 1.95 X1000 (1.2-3.4); LYMPH% 31.2 % (20.5-51.1); MCH 33.6 PG (27-31); MCHC 32.7 g/dL (33-37); MCV 102.8 FL (81-99); MONO# 0.74 X1000 (0.11-0.59); MONO% 11.8 % (1.7-9.3); MPV 11.9 FL (7.4-10.4); NEUT% 54.6 % (42.2-75.2); PLT 211 X1000 (130-400)
[2017-03-14 06:59] LABS: AGAP 12; BUN 23 mg/dL (8-22); CALCIUM 9.4 mg/dL (8.8-10.2); CHLORIDE 100 mmol/L (98-107); COSMO 289; IRON SATURATION 35 %; POTASSIUM 4.4 mmol/L (3.5-5.1); SODIUM 144 mmol/L (136-145); TCO2 32 mmol/L (25-35); TIBC 286 ug/dL; TOTAL IRON 99 ug/dL (49-151); UNBOUND IRON 187 ug/dL (112-346)
[2017-03-14] MEDS: SPIRIVA INH SCH (07:41)
[2017-03-14 08:05] LABS: FERRITIN 183 ng/mL (13-150)
[2017-03-14] MEDS: LEVAQUIN PO SCH (10:15)
[2017-03-14] MEDS: PRILOSEC PO SCH (10:15)
[2017-03-14] MEDS: ASPIRIN PO SCH (10:16)
[2017-03-14] MEDS: SOLU-MEDROL IV SCH ×2 (10:16→13:31)
[2017-03-14] MEDS: LOVENOX SUBQ SCH (10:16)
[2017-03-14] MEDS ORDERED: MEDROL DOSEPAK PO SCH (14:00)
[2017-03-14 14:37] VITALS: BP 168/71
--- NOTE | 2017-03-15 11:50 | DISCHARGE SUMMARY ---
ADMISSION DATE: 03/09/2017 DISCHARGE DATE: 03/14/2017 CONSULTATIONS: 1. Dr. Chris Gonzalez of cardiology. 2. Dr. Rashid Cruz of pulmonology. PERTINENT PROCEDURES: 1. Pulmonary arteriogram showed no evidence of PE. 2. Echocardiogram is in the range of 60% with no segmental wall motion abnormalities. 3. Head CT showed chronic microvascular white matter changes. Further evaluation with MRI may be desirable in view of chronic ischemic changes. DISCHARGE DIAGNOSES: 1. Acute respiratory failure secondary to chronic obstructive pulmonary disease exacerbation followed by pulmonology. Patient will continue supplemental oxygen at home, bronchodilators, oral Levaquin and a Medrol Dosepak. 2. Chest discomfort. Troponins have been negative. She has been evaluated by cardiology; they feel it is reasonable to do a cardiovascular screening in the patient considering her history of smoking. They prefer to do this as an outpatient considering her ongoing lung issues, and they will follow up with her in the office. 3. Dyslipidemia. Continue medications. 4. Hypertension, controlled. 5. Morbid obesity. The patient has been seen by bariatric surgeon recently. They were planning to do surgery in the near future. 6. Obstructive sleep apnea. Patient uses a CPAP at home. 7. Microcytic anemia. HOSPITAL COURSE: Ms. Es Velásquez is a 61-year-old female, who is morbidly obese, recently seeing a bariatric surgeon, and they plan to do surgery in the near future. COPD on home O2. Sleep apnea; uses a CPAP. Hypertension and dyslipidemia. She came to the ED reporting 5 days prior she had been feeling unwell, developing shortness of breath with chest pain that radiated to the right shoulder associated with nausea and dizziness. Denied diaphoresis. She just felt like her chest was tight, hard to breathe. She went to see her PCP, Dr. Esteban Almeida, who sent her to the ED for workup for her COPD and chest pain. Upon evaluation , her white count was normal at 5. Her ABG was somewhat normal on 3 L nasal cannula. She normally wears 2 L at home. She felt like this was not her normal COPD and was concerned about her heart. She did have an elevated D-dimer at 1.42. Her CTA was negative for PE. Cardiac enzymes x3 sets were negative. EKG was negative. She was worked up for COPD exacerbation and a cardiology consult for any cardiac rule out. She also stated she has been getting workup through Dr. Dias for a gastric sleeve, that her cardiac workup had not been completed, and she carries a family history of cardiac disease primarily in her brothers and father. She has been a smoker for 40 years, although she quit a year and a half ago. She is morbidly obese and she does have high cholesterol. She was admitted for atypical chest pain. Consult to cardiology. Again, 3 sets of negative enzymes. EKG was negative, as well as COPD exacerbation. She was continued on supplemental O2, bronchodilators, aggressive pulmonary toilet and continued on her CPAP for her obstructive sleep apnea. She was also initiated on IV steroids and IV antibiotics. Cardiology felt given her smoking history she did warrant a cardiac evaluation, however they wanted her to be treated for her pulmonary issues and to continue on the aspirin and follow up with them for outpatient basis. Dr. Cruz recommended having p.o. Levaquin for atypical pathogens, along with gram-negative coverage. In addition to her current treatment, we did have her evaluated by physical therapy. Their recommendation was home physical therapy. However, patient refused outpatient physical therapy or in-home physical therapy. She will remain on her home O2, as well as CPAP with [employer]. VITAL SIGNS AT TIME OF DISCHARGE: Temperature is 98.7 degrees, heart rate 76, respirations 18, blood pressure 161/71, O2 is 95% on 4 L nasal cannula. DISCHARGE DIET: Healthy heart. DISCHARGE MEDICATIONS: As per Dr. Orozco: 1. Ventolin inhaler 18 g inhaled b.i.d. 2. Imuran 2 tabs p.o. b.i.d. 3. Bentyl 10 mg p.o. as directed. 4. Plaquenil 200 mg p.o. b.i.d. 5. Levaquin 500 mg p.o. daily. 6. Losartan/hydrochlorothiazide 50/12.5 mg, 1 tab p.o. daily. 7. Medrol Dosepak as directed. 8. Prilosec 40 mg p.o. daily. 9. Spiriva 1 puff inhaled RT daily. FOLLOW UP: Ms. Velásquez is being discharged back home with her home O2 and CPAP. She will follow up with Dr. Cruz in [address] Chris Gonzalez at the [facility] in 1 month. She will return to the ED for any worsening of symptoms. Patient seen and examined by me face to face, all the lab work, images and vitals signs were reviewed, Patient has moebid obesity with RENEE, on top of that she has COPD, patient received breathing treatment alog with steroids, she is stable today but needs a bipap at home for her sleep problem, I agree with the assessment and plan, Pam Arce MD Dictated by PATRICE Mathew for Claude Villatoro MD cc: MD Esteban Larsen MD [facility]
--- NOTE | 2017-03-16 03:51 | DISCHARGE SUMMARY ---
ADMISSION DATE: 03/09/2017 DISCHARGE DATE: 03/14/2017 ADDENDUM REPORT The patient has decided at this time to go home with a home health and physical therapy, After further discussion with her. Dictated by PATRICE Mathew for Claude Villatoro MD cc: MD Esteban Larsen MD
--- NOTE | 2017-03-23 08:46 | Extremity Venous Study ---
PROCEDURE NAME: Venous U/S Bilateral Legs - 03/10/2017 The patient has edema and shortness of breath. The exam was somewhat difficult due to the body habitus. Bilateral lower extremity venous image was accomplished. The common femoral, superficial femoral, deep femoral, popliteal, posterior tibial, peroneal, and greater saphenous veins are imaged bilaterally. Doppler was used to evaluate the veins for spontaneity, phasicity, respiratory excursion, and distal augmentation. All veins are compressible. No intraluminal clot is seen. INTERPRETATION: No evidence of deep or superficial venous thrombosis in either lower extremity in the veins identified. cc: MD Jailyn Daniels CRNP
== END 2017-03-14 16:43 | disposition home health service (06) ==
LOC: SUPCPDRO → ED 09:43 → SUATTDRO 17:43 → 3N 17:43
PROVIDERS: ATTEND Internal Medicine